=== PATIENT | female | born 1970 | race Caucasian/White ===

== ENCOUNTER 2017-04-30 14:33 | Emergency (ER) | payer MEDICARE, OTHER ==
--- NOTE | 2017-04-30 15:03 | ED Physician Documentation ---
General Adult - HISTORIAN Historian: patient - HPI Stated Complaint: Seizure after blood sugars dropped Chief Complaint: Seizure Onset: hours (1) Timing: better Severity: mild Further Comments: no Last known Well Date: 04/30/17 Last Known Well Time: 15:00 Last known Well Code/Unknown Code: Unknown - ROS CONST: weakness. denies: fever, sweating, recent illness, chills EYES/ENT: denies: problems with vision CVS/RESP: denies: chest pain, shortness of breath GI/: denies: abdominal pain, problems urinating, vomiting, nausea, diarrhea MS/SKIN/LYMPH: none NEURO/PSYCH: headache, dizziness - PAST HX Past History: other (seizures , Type I DM, Neuropath, Insomina, IBS ) Surgeries/Procedures: other Immunizations: referred to PCP Allergies/Adverse Reactions: Allergies Allergy/AdvReac Type Severity Reaction Status Date / Time nalbuphine HCl [From Nubain] Allergy Verified 04/30/17 15:33 Home Medications: Ambulatory Orders Medication Instructions Recorded Budesonide [Entocort EC] 3 mg PO DAILY 04/30/17 Gabapentin [Neurontin] 100 mg PO TID 04/30/17 Hydrocodone/Acetaminophen 1 tab PO Q4 PRN 04/30/17 [Hydrocodon-Acetaminophen 5-325] Insulin Aspart [Novolog Flexpen] 18 - 22 units SUBCUT AC15 04/30/17 Insulin Glargine,Hum.rec.anlog 22 units SUBCUT 1800 04/30/17 [Lantus Solostar] Insulin Glargine,Hum.rec.anlog 22 units SUBCUT HS 04/30/17 [Lantus Solostar] Lamotrigine [Lamictal] 100 mg PO TID 04/30/17 Zolpidem Tartrate [Zolpidem 10 mg PO DAILY 04/30/17 Tartrate] - SOCIAL HX Smoking History: cigarettes Alcohol Use: none Drug Use: none - FAMILY HX Family History: No - REVIEWED ASSESSMENTS Nursing Assessment Reviewed: Yes Vitals Reviewed: Yes Progress - Progress Progress: 1555: She is remembering more - she is able to recall meds and her physicians General Adult Physical Exam - PHYSICAL EXAM GENERAL APPEARANCE: no distress EENT: eye inspection normal NECK: normal inspection RESPIRATORY: no resp distress, chest non-tender, breath sounds normal CVS: reg rate & rhythm, heart sounds normal, no murmur ABDOMEN: soft, no organomegaly, normal bowel sounds SKIN: warm/dry EXTREMITIES: non-tender, normal range of motion, no evidence of injury NEURO: oriented X3, CN's nml as tested, motor nml, disoriented (Tounge with open area where she bit the tongue with no bleeding normal movement ) Discharge Clincal Impression: Seizure Referrals: Primary Doctor,No [Primary Care Provider] - 2 Days Disposition: 01 HOME, SELF-CARE Decision to Admit: NO Date of Decison to Admit: 04/30/17 Decision Time: 16:37
[2017-04-30] MEDS ORDERED: DEXTROSE 5 % IN WATER 500 ML IV ONE (15:18)
[2017-04-30 15:21] LABS: BASOPHILS % 0.2 (0.0-1.5); EOSINOPHILS % 1.4 % (0.0-6.8); MEAN CORPUSCULAR HEMOGLOBIN 29.6 pg (28.0-34.0); MEAN CORPUSCULAR VOLUME 88.1 fl (80.0-100.0); MONOCYTES % 3.2 % (0.0-11.0); NEUTROPHILS # 9.1 # k/uL (1.4-7.7)
[2017-04-30 15:34] LABS: eGFR (African) > 60; eGFR (Non-African) > 60
[2017-04-30] MEDS ORDERED: DEXTROSE 5 % IN WATER 1,000 ML IV SCH (16:00)
[2017-04-30] MEDS ORDERED: DEXTROSE 5 % AND 0.9 % NACL 1,000 ML IV SCH (16:00)
[2017-04-30 16:56] VITALS: BP 106/58
== END 2017-04-30 16:54 | disposition home or self-care (01) ==
LOC: ED 14:33
DX: G40.909 Epilepsy, unspecified, not intractable, without status epilepticus (principal)
CPT/HCPCS: 80053; 85025; J7060; J7070; 96360; 99283